=== PATIENT | male | born 1960 | race Caucasian/White ===

== ENCOUNTER 2017-01-27 01:44 | Inpatient (IN) | payer MEDICARE, MEDICAID ==
[~2017-01-27] VITALS: Ht 162.6 cm; Wt 59.0 kg
[2017-01-27 02:40] LABS: HEMOGLOBIN 12.6 gm/dl (14.0-17.5); RED BLOOD COUNT 3.92 M/UL (4.20-5.50); WHITE BLOOD COUNT 14.1 K/UL (4.5-11.0)
[2017-01-27 02:58] LABS: BUN/CREATININE RATIO 9 (0-10)
[2017-01-27] MEDS ORDERED: VISTARIL 25 MG25 MG PO (17:45)
[2017-01-27] MEDS ORDERED: LISINOPRIL30 MG PO (17:45)
[2017-01-27] MEDS ORDERED: PRILOSEC OTC20 MG PO (17:46)
[2017-01-27] MEDS ORDERED: FLEXERIL 10 MG10 MG PO (17:46)
[2017-01-27] MEDS ORDERED: TENORMIN 25 MG25 MG PO (17:47)
[2017-01-27] MEDS ORDERED: NEURONTIN 400400 MG PO (17:47)
[2017-01-27] MEDS ORDERED: CAPOZIDE 25/15 T1 EA PO (17:48)
[2017-01-28 05:51] LABS: HEMOGLOBIN 12.3 gm/dl (14.0-17.5); RED BLOOD COUNT 3.9 M/UL (4.20-5.50)
[2017-01-28 05:52] LABS: WHITE BLOOD COUNT 6.6 K/UL (4.5-11.0)
[2017-01-28 06:18] LABS: BUN/CREATININE RATIO 9 (0-10)
[2017-01-29 03:38] LABS: HEMOGLOBIN 11.3 gm/dl (14.0-17.5); RED BLOOD COUNT 3.58 M/UL (4.20-5.50); WHITE BLOOD COUNT 6.4 K/UL (4.5-11.0)
[2017-01-29 06:07] LABS: BUN/CREATININE RATIO 12 (0-10)
[2017-01-29] MEDS ORDERED: NORVASC 5 MG TAB5 MG PO (14:46)
[2017-01-29] MEDS ORDERED: CHRONULAC20 GM/30 M PO ×2 (14:48→14:50)
[2017-01-29] MEDS ORDERED: KEPPRA500 MG PO (14:51)
== END 2017-01-29 16:00 | disposition home or self-care (01) | DRG 896 ==
LOC: ER1 01:44 → PROG CARE 06:30 → ZEROF 06:30 → PROG CARE 18:21
PROVIDERS: Emergency Medicine; ADMIT Internal Medicine
DX: F10.239 Alcohol dependence with withdrawal, unspecified (principal); G93.41 Metabolic encephalopathy; K70.40 Alcoholic hepatic failure without coma; I16.0 Hypertensive urgency; R56.9 Unspecified convulsions; E87.6 Hypokalemia; S01.81XA Laceration without foreign body of other part of head, initial encounter; Y90.0 Blood alcohol level of less than 20 mg/100 ml; K29.70 Gastritis, unspecified, without bleeding; K20.9 Esophagitis, unspecified; F17.210 Nicotine dependence, cigarettes, uncomplicated; Z80.9 Family history of malignant neoplasm, unspecified; X58.XXXA Exposure to other specified factors, initial encounter; Y93.9 Activity, unspecified; Y92.9 Unspecified place or not applicable; Z79.899 Other long term (current) drug therapy
CPT/HCPCS: 36415; 70450; 70551; 80048; 80053; 82140; 82150; 83605; 83690; 83735; 84100; 84484; 85025; 85027; 93005; 95816; 96361; 96374; 96375; 96376; 99285; C9113; G0480; J2060; J2270; J2405; J2550; J3411; J3475; J7030